=== PATIENT | female | born 1990 | race Caucasian/White ===

== ENCOUNTER 2020-05-27 08:00 | Inpatient (IN) | payer OTHER ==
[2020-05-27] MEDS ORDERED: Sodium Chloride 0.9% 10 ML SDV IV PRN (10:33)
[2020-05-27] MEDS ORDERED: Citric Acid/Sodium Citrate Solution 30 ML Cup PO ONE (10:33)
[2020-05-27] MEDS ORDERED: Sodium Chloride 0.9% 10 ML Syringe FLUSH PRN (10:33)
[2020-05-27] MEDS ORDERED: Sodium Chloride 0.9% 2.5 ML Syringe FLUSH PRN (10:33)
[2020-05-27] MEDS ORDERED: Oxytocin/0.9 % Sodium Chloride 30 UNIT/500 ML BAG IV SCH (10:45)
--- NOTE | 2020-05-27 10:56 | PCM.PREANE ---
Preanesthetic Assessment - Anesthesia/Transfusion/Family Hx Anesthesia History: Prior Anesthesia Reaction (PONV) Type of Anesthesia Reaction: Excessive Nausea/Vomiting Transfusion History: No Prior Transfusion(s) - Review of Systems General: No Symptoms Pulmonary: No Symptoms Cardiovascular: No Symptoms Gastrointestinal: No Symptoms Neurological: No Symptoms Other: Reports: None - Physical Assessment NPO Status Date: 05/27/20 NPO Status Time: 06:00 (apple juice) Height: 1.6 m Weight: 95.254 kg ASA Class: 2 Mental Status: Alert & Oriented x3 Airway Class: Mallampati = 2 Dentition: Reports: Normal Dentition Thyro-Mental Finger Breadths: 3 Mouth Opening Finger Breadths: 3 ROM/Head Extension: Full Lungs: Clear to Auscultation, Normal Respiratory Effort Cardiovascular: Regular Rate, Regular Rhythm - Allergies Allergies/Adverse Reactions: Allergies Allergy/AdvReac Type Severity Reaction Status Date / Time No Known Allergies Allergy Verified 05/21/20 10:24 - Acknowledgements Anesthesia Type Planned: Spinal (The patient understands and accepts the anesthetic risks and benefits of Spinal Anesthesia. Including failed spinal requiring conversion to General Anesthesia. All questions answered. Consent signed. 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: , Other (See Below) Other OB/BYN History: section Musculoskeletal History: Reports: None Neurological History: Reports: None Psychiatric History: Reports: None Endocrine/Metabolic History: Reports: Obesity/BMI 30+ (BMI 37) Hematologic History: Reports: None - Infectious Disease History Infectious Disease History: Reports: Chicken Pox, Other (See Below) (COVID 19 NEGATIVE) - Past Surgical History Head Surgeries/Procedures: Reports: None Female Surgical History: Reports: Section (two) - SUBSTANCE USE Tobacco Use Status *Q: Never Tobacco User Days Per Week of Alcohol Use: 0 Recreational Drug Use History: No - HOME MEDS Home Medications: Home Meds Pnv No.95/Ferrous Fum/Folic AC [ Caplet] 1 cap PO DAILY 05/21/20 [History] - CURRENT (IN HOUSE) MEDS Current Meds: Current Medications Oxytocin/Sodium Chloride (Oxytocin 30 Unit/500 Ml-Ns) 30 unit in 500 mls @ 250 mls/hr IV TITRATE COLLETTE Cefazolin Sodium/Dextrose 2 gm (/ Premix) 50 mls @ 100 mls/hr IV ONETIME ONE Stop: 05/27/20 11:29 Lactated Ringer's (Ringers, Lactated) 1,000 mls @ 500 mls/hr IV BOLUS COLLETTE Ondansetron HCl (Ondansetron 4 Mg/2 Ml Sdv) 4 mg IVPUSH Q6H PRN PRN Reason: Nausea/Vomiting Sodium Chloride (Sodium Chloride 0.9% 10 Ml Syringe) 10 ml FLUSH ASDIRECTED PRN PRN Reason: Keep Vein Open Sodium Chloride (Sodium Chloride 0.9% 2.5 Ml Syringe) 2.5 ml FLUSH ASDIRECTED PRN PRN Reason: Keep Vein Open Sodium Chloride (Sodium Chloride 0.9% 10 Ml Sdv) 10 ml IV ASDIRECTED PRN PRN Reason: IV Use Discontinued Medications Citric Acid/Sodium Citrate (Citric Acid/Sodium Citrate Solution 30 Ml Cup) 30 ml PO ONETIME ONE Stop: 05/27/20 10:34
--- NOTE | 2020-05-27 10:56 | PCM.LDHP ---
L&D History of Present Illness - General Date of Service: 05/27/20 Admit Problem/Dx: Patient Status Order with Admit Dx/Problem 05/27/20 10:33 Patient Status [ADT] Routine Admission Diagnosis/Problem Admission Diagnosis/Problem Source of Information: Patient History Limitations: Reports: No Limitations - History of Present Illness Improves with: Reports: None Worsens with: Reports: None Associated Symptoms: Reports: N - Related Data Allergies/Adverse Reactions: Allergies Allergy/AdvReac Type Severity Reaction Status Date / Time No Known Allergies Allergy Verified 05/21/20 10:24 Home Medications: Home Meds Pnv No.95/Ferrous Fum/Folic AC [ Caplet] 1 cap PO DAILY 05/21/20 [History] Past Medical History HEENT History: Reports: Other (See Below) Other HEENT History: wears glasses/contacts Gastrointestinal History: Reports: Other (See Below) Other Gastrointestinal History: some heartburn during [employer]IDING [employer] History: Reports: , Other (See Below) Other OB/BYN History: section Endocrine/Metabolic History: Reports: Obesity/BMI 30+ - Infectious Disease History Infectious Disease History: Reports: Chicken Pox - Past Surgical History Head Surgeries/Procedures: Reports: None Social & Family History - Family History Musculoskeletal: Reports: Other (See Below) Other Musculoskeletal Family History: Marfan syndrome Endocrine/Metabolic: Reports: Other (See Below) Other Endocrine/Metabolic Family History: Thyroid (pt unsure of which type) Oncologic: Reports: Breast - Tobacco Use Tobacco Use Status *Q: Never Tobacco User - Recreational Drug Use Recreational Drug Use: No Drug Use in Last 12 Months: No H&P Review of Systems - Review of Systems: Review Of Systems: See Below General: Reports: No Symptoms HEENT: Reports: No Symptoms Pulmonary: Reports: No Symptoms Cardiovascular: Reports: No Symptoms Gastrointestinal: Reports: No Symptoms Genitourinary: Reports: No Symptoms Musculoskeletal: Reports: No Symptoms Skin: Reports: No Symptoms Psychiatric: Reports: No Symptoms Neurological: Reports: No Symptoms Hematologic/Lymphatic: Reports: No Symptoms Immunologic: Reports: No Symptoms L&D Exam - Exam Exam: See Below - Vital Signs Weight: 95.254 kg - OB Specific Contraction Intensity: Mild Movement: Active Heart Tones: Present Presentation: Vertex - Exam General: Alert, Oriented HEENT: PERRLA, Conjunctiva Clear, EACs Clear, EOMI, Hearing Intact, Mucosa Moist & [place], Nares Patent, Normal Nasal Septum, Posterior Pharynx Clear, TMs Clear Neck: Supple, Trachea Midline Lungs: Clear to Auscultation, Normal Respiratory Effort Cardiovascular: Regular Rate, Regular Rhythm GI/Abdominal Exam: Normal Bowel Sounds, Soft, Non-Tender, No Organomegaly, No Distention, No Abnormal Bruit, No Mass, Pelvis Stable Rectal Exam: Normal Exam, Normal Rectal Tone Genitourinary: Normal external exam, Normal bimanual exam, Normal speculum exam Back Exam: Normal Inspection, Full Range of Motion Extremities: Normal Inspection, Normal Range of Motion, Non-Tender, No Pedal Edema, Normal Capillary Refill Skin: Warm, Dry, Intact Neurological: Cranial Nerves Intact, Reflexes Equal Bilateral Psychiatric: Alert, Normal Affect, Normal Mood Problem List Initiated/Reviewed/Updated: Yes Orders Last 24hrs: Active Orders 24 hr Category Date Time Status Patient Status [ADT] Routine ADT 05/27/20 10:33 Active Non Stress Test [RC] PER UNIT ROUTINE Care 05/27/20 10:33 Active Notify Provider Vital Signs [RC] PRN Care 05/27/20 14:00 Active Peripheral IV Care [RC] PRN Care 05/27/20 10:33 Active Procedure Site Prep Instruct [RC] ASDIRECTED Care 05/27/20 10:33 Active Up ad Ibis [RC] ASDIRECTED Care 05/27/20 10:33 Active Verify Patient Consent Obtain [RC] ASDIRECTED Care 05/27/20 10:33 Active Vital Signs [RC] PER UNIT ROUTINE Care 05/27/20 10:33 Active CBC W/O DIFF,HEMOGRAM [HEME] Routine Lab 05/27/20 10:33 Ordered RPR (SYPHILIS SERO) W/ RFLX [REF] Routine Lab 05/27/20 10:33 Ordered TYPE AND SCREEN [BBK] Routine Lab 05/27/20 10:33 Ordered Lactated Ringers [Ringers, Lactated] 1,000 ml Med 05/27/20 10:45 Active IV BOLUS Ondansetron [Zofran] Med 05/27/20 13:00 Active 4 mg IVPUSH Q6H PRN Oxytocin/0.9 % Sodium Chloride [Oxytocin 30 Unit/500 ML Med 05/27/20 10:45 Active -NS] 30 unit in 500 ml IV TITRATE Sodium Chloride 0.9% [Normal Saline] Med 05/27/20 10:33 Active 10 ml IV ASDIRECTED PRN Sodium Chloride 0.9% [Saline Flush] Med 05/27/20 10:33 Active 10 ml FLUSH ASDIRECTED PRN Sodium Chloride 0.9% [Saline Flush] Med 05/27/20 10:33 Active 2.5 ml FLUSH ASDIRECTED PRN ceFAZolin [Ancef 2 GM/50 ML] 2 gm Med 05/27/20 11:00 Active Premix Bag 1 bag IV ONETIME Peripheral IV Insertion Adult [OM.PC] Routine Oth 05/27/20 10:33 Ordered Schedule Procedure [COMM] Per Unit Routine Oth 05/27/20 10:33 Ordered Resuscitation Status Routine Resus Stat 05/27/20 10:33 Ordered Medication Orders Oxytocin/Sodium Chloride (Oxytocin 30 Unit/500 Ml-Ns) 30 unit in 500 mls @ 250 mls/hr IV TITRATE COLLETTE Cefazolin Sodium/Dextrose 2 gm (/ Premix) 50 mls @ 100 mls/hr IV ONETIME ONE Stop: 05/27/20 11:29 Lactated Ringer's (Ringers, Lactated) 1,000 mls @ 500 mls/hr IV BOLUS COLLETTE Ondansetron HCl (Ondansetron 4 Mg/2 Ml Sdv) 4 mg IVPUSH Q6H PRN PRN Reason: Nausea/Vomiting Sodium Chloride (Sodium Chloride 0.9% 10 Ml Syringe) 10 ml FLUSH ASDIRECTED PRN PRN Reason: Keep Vein Open Sodium Chloride (Sodium Chloride 0.9% 2.5 Ml Syringe) 2.5 ml FLUSH ASDIRECTED PRN PRN Reason: Keep Vein Open Sodium Chloride (Sodium Chloride 0.9% 10 Ml Sdv) 10 ml IV ASDIRECTED PRN PRN Reason: IV Use Assessment/Plan Comment:: Term intrauterine the patient admitted for elective repeat section
[2020-05-27] MEDS ORDERED: Morphine PF 10 MG/10 ML SDV ONE (10:59)
[2020-05-27] MEDS ORDERED: fentaNYL 100 MCG/2 ML SDV ONE (10:59)
[2020-05-27] MEDS ORDERED: ceFAZolin 2 GM in Premix Bag 1 BAG IV ONE (11:00)
[2020-05-27] MEDS ORDERED: Ondansetron 4 MG/2 ML SDV ONE (11:03)
[2020-05-27] MEDS ORDERED: Oxytocin 10 Units/1 ML SDV ONE (11:03)
[2020-05-27] MEDS ORDERED: Phenylephrine 1% 10 MG/ML SDV ONE ×2 (11:03→12:32)
[2020-05-27] MEDS ORDERED: ceFAZolin 1 GM Vial ONE (11:07)
[2020-05-27] MEDS ORDERED: Sodium Chloride 0.9% 20 ML ONE (11:07)
[2020-05-27] MEDS: Lactated Ringers 1,000 ML IV SCH ×4 (11:35→19:50)
[2020-05-27] MEDS ORDERED: Glycopyrrolate 0.2 MG/ML SDV ONE (12:29)
[2020-05-27] MEDS ORDERED: Nalbuphine 10 MG/1 ML Vial IVPUSH PRN (12:35)
[2020-05-27] MEDS ORDERED: Naloxone 0.4 MG/ML Syringe IVPUSH PRN (12:35)
[2020-05-27] MEDS ORDERED: Acetaminophen/oxyCODONE 325-5 MG Tab PO PRN ×3 (12:35→13:08)
[2020-05-27] MEDS ORDERED: Acetaminophen/HYDROcodone 325-5 MG Tab PO PRN (12:35)
[2020-05-27] MEDS ORDERED: Dexamethasone 4 MG/ML 5 ML MDV ONE (12:36)
[2020-05-27] MEDS ORDERED: Midazolam 1 MG/ML 2 ML SDV ONE (12:37)
[2020-05-27] MEDS ORDERED: Octyl 2-Cyanoacrylate 1 Tube ONE (12:47)
[2020-05-27] MEDS ORDERED: Ondansetron 4 MG/2 ML SDV IVPUSH PRN ×2 (13:00→13:08)
[2020-05-27] MEDS ORDERED: Oxytocin 10 Units/1 ML SDV IM PRN (13:08)
[2020-05-27] MEDS ORDERED: diphenhydrAMINE 50 MG/ML SDV IVPUSH PRN (13:08)
[2020-05-27] MEDS ORDERED: Lanolin 100% Cream 7 GM Tube TOP PRN (13:08)
[2020-05-27] MEDS ORDERED: Misoprostol 200 MCG Tab RECTAL PRN (13:08)
[2020-05-27] MEDS ORDERED: Tranexamic Acid 1,000 MG in Sodium Chloride 0.9% 100 ML IV PRN (13:08)
[2020-05-27] MEDS ORDERED: Bisacodyl 10 MG Supp RECTAL PRN (13:08)
[2020-05-27] MEDS ORDERED: Methylergonovine 0.2 MG/1 ML Amp IM PRN (13:08)
--- NOTE | 2020-05-27 13:26 | PCM.OPNOTE ---
- General Post-Op/Procedure Note Date of Surgery/Procedure: 05/27/20 Operative Procedure(s): Repeat C/section. Pre Op Diagnosis: IUP 39 wks previous C/section. Post-Op Diagnosis: Same Anesthesia Technique: Spinal Primary Surgeon: Omid Dudley Collar Padder Blindstitch: Herminia Guzman EBL in mLs: 700 Complications: None Condition: Stable
[2020-05-27] MEDS: Ketorolac 30 MG/ML SDV IVPUSH SCH ×2 (13:31→19:47)
--- NOTE | 2020-05-27 13:51 | PCM.POSTAN ---
POST ANESTHESIA ASSESSMENT - MENTAL STATUS Mental Status: Alert (Patient sitting straight up in bed with SBP 90's and asymptomatic), Oriented - RESPIRATORY Respiratory Status: Respiratory Rate WNL, Airway Patent, O2 Saturation Stable - CARDIOVASCULAR CV Status: Pulse Rate WNL, Blood Pressure Stable - GASTROINTESTINAL GI Status: No Symptoms - POST OP HYDRATION Hydration Status: Adequate & Stable
--- NOTE | 2020-05-27 14:35 | OR ---
SURGEON: Omid Dudley MD DATE OF PROCEDURE: 05/27/2020 PREOPERATIVE DIAGNOSIS: Intrauterine at 39 weeks, previous section, admitted for elective repeat section. POSTOPERATIVE DIAGNOSIS: Intrauterine at 39 weeks, previous section, admitted for elective repeat section. OPERATION PERFORMED: Repeat low transverse section. PRIMARY SURGEON: Omid Dudley MD MASTER HEARTH TECHNICIAN: Herminia Guzman CNM ANESTHESIA: Spinal. ESTIMATED BLOOD LOSS: 700 mL. COMPLICATIONS: None. FINDINGS: Female fetus. score reported to be 8 and 9. The weight is not available. Normal uterus, tubes, and ovaries. INDICATIONS FOR SURGERY: This patient has had a previous section. She is admitted for elective repeat section. She is 39 plus weeks. PROCEDURE IN DETAIL: The patient was brought to the OR, properly identified, and after adequate level of spinal anesthesia with the patient prepped and draped in sterile fashion as usual with a Barrios catheter in the bladder, low transverse Pfannenstiel skin incision was done. Freddy fascia and rectus fascia were opened in direction of the incision. The two recti muscles were and peritoneal cavity was entered. Bladder flap was raised in the usual manner pushing the bladder away from the lower uterine segment. Low transverse uterine incision was done and extended manually with the hand. Fetus was delivered, was in a vertex position. Fetus was female, cried immediately. score later on reported to be 8 and 9. The placenta delivered spontaneous, complete, and intact and repair of the lower uterine segment was done with 2-0 Vicryl continuous interlocking in two layers. Reperitonealization done with 3-0 Vicryl continuous and then the peritoneal cavity evacuated completely from all blood and blood clot and closed with 3-0 Vicryl continuous. The rectus fascia was closed with #1 PDS double strand continuous. The Freddy fascia with 3-0 Vicryl continuous. The skin closed with 3-0 Stratafix in a subcuticular fashion and Dermabond. Instrument and sponge count was correct. The patient tolerated the procedure well, went to recovery room in stable general condition. TIMOTHY / BUSTER /[id number]
[2020-05-27] MEDS ORDERED: Scopolamine 1.5 MG Transdermal Patch TRDERM PRN (17:39)
[2020-05-27] MEDS ORDERED: Metoclopramide 10 MG/2 ML SDV IVPUSH ONE (17:39)
[2020-05-27] MEDS: Docusate Sodium 100 MG Cap PO SCH (22:00)
[2020-05-28] MEDS: Ketorolac 30 MG/ML SDV IVPUSH SCH ×3 (02:25→13:54)
[2020-05-28] MEDS: Lactated Ringers 1,000 ML IV SCH (04:00)
--- NOTE | 2020-05-28 07:55 | PCM48HPAN ---
Post Anesthesia Note - EVALUATION WITHIN 48HRS OF ANESTHETIC Vital Signs in Normal Range: Yes Patient Participated in Evaluation: Yes Respiratory Function Stable: Yes Airway Patent: Yes Cardiovascular Function Stable: Yes Hydration Status Stable: Yes Pain Control Satisfactory: Yes Nausea and Vomiting Control Satisfactory: Yes Mental Status Recovered: Yes Vital Signs: Last Vital Signs Temp 37.0 C 05/28/20 00:00 Pulse 68 05/28/20 07:25 Resp 17 05/28/20 07:25 BP 95/53 L 05/28/20 05:00 Pulse Ox 94 L 05/28/20 07:25 - COMMENTS/OBSERVATIONS Free Text/Narrative:: pt states full sensation in legs bilaterally
[2020-05-28] MEDS: Docusate Sodium 100 MG Cap PO SCH ×2 (08:01→21:14)
--- NOTE | 2020-05-28 08:48 | PCM.SURGPN ---
- General Info Date of Service: 05/28/20 POD#: 1 Functional Status: Reports: Pain Controlled - Review of Systems General: Reports: No Symptoms HEENT: Reports: No Symptoms Pulmonary: Reports: No Symptoms Cardiovascular: Reports: No Symptoms Gastrointestinal: Reports: No Symptoms Genitourinary: Reports: No Symptoms Musculoskeletal: Reports: No Symptoms Skin: Reports: No Symptoms Neurological: Reports: No Symptoms Psychiatric: Reports: No Symptoms - Patient Data Vitals - Most Recent: Last Vital Signs Temp 36.6 C 05/28/20 07:58 Pulse 70 05/28/20 07:58 Resp 16 05/28/20 07:58 BP 90/47 L 05/28/20 07:58 Pulse Ox 95 05/28/20 07:58 Weight - Most Recent: 95.254 kg I&O - Last 24 Hours: Intake & Output 05/27/20 05/28/20 05/28/20 22:59 06:59 14:59 Output Total 850 Balance -850 Lab Results Last 24 Hrs: Laboratory Results - last 24 hr 05/27/20 05/27/20 05/28/20 Range/Units 11:35 11:35 05:50 WBC 12.45 H (4.0-11.0) K/uL RBC 3.58 L (4.30-5.90) M/uL Hgb 11.3 L 9.5 L (12.0-16.0) g/dL Hct 32.5 L 26.9 L (36.0-46.0) % MCV 90.8 (80.0-98.0) fL MCH 31.6 (27.0-32.0) pg MCHC 34.8 (31.0-37.0) g/dL RDW Std Deviation 61.9 (28.0-62.0) fl RDW Coeff of Alice 19 H (11.0-15.0) % Plt Count 208 (150-400) K/uL MPV 9.90 (7.40-12.00) fL Nucleated RBC % 0.0 /100WBC Nucleated RBCs # 0 K/uL Blood Type A POSITIVE Antibody Screen NEGATIVE Med Orders - Current: Current Medications Hydrocodone Bitart/Acetaminophen (Acetaminophen/Hydrocodone 325-5 Mg Tab) 2 tab PO Q6H PRN PRN Reason: Pain (moderate 4-6) Bisacodyl (Bisacodyl 10 Mg Supp) 10 mg RECTAL ONETIME PRN PRN Reason: Constipation Diphenhydramine HCl (Diphenhydramine 50 Mg/Ml Sdv) 25 mg IVPUSH Q6H PRN PRN Reason: Itching or Nausea Docusate Sodium (Docusate Sodium 100 Mg Cap) 100 mg PO BID [facility] Last Admin: 05/28/20 08:01 Dose: 100 mg Documented by: Emollient Ointment (Lanolin 100% Cream 7 Gm Tube) 0 gm TOP ASDIRECTED PRN PRN Reason: Sore Nipples Oxytocin/Sodium Chloride (Oxytocin 30 Unit/500 Ml-Ns) 30 unit in 500 mls @ 250 mls/hr IV TITRATE [facility] Lactated Ringer's (Ringers, Lactated) 1,000 mls @ 500 mls/hr IV BOLUS [facility] Last Admin: 05/27/20 12:03 Dose: 999 mls/hr Documented by: Lactated Ringer's (Ringers, Lactated) 1,000 mls @ 125 mls/hr IV ASDIRECTED [facility] Last Admin: 05/28/20 04:00 Dose: 125 mls/hr Documented by: Tranexamic Acid 1,000 mg/ (Sodium Chloride) 110 mls @ 660 mls/hr IV ONETIME PRN PRN Reason: Bleeding Ibuprofen (Ibuprofen 800 Mg Tab) 800 mg PO Q8H PRN PRN Reason: mild pain or fever Ketorolac Tromethamine (Ketorolac 30 Mg/Ml Sdv) 30 mg IVPUSH Q6H [facility] Stop: 05/28/20 13:16 Last Admin: 05/28/20 08:01 Dose: 30 mg Documented by: Methylergonovine Maleate (Methylergonovine 0.2 Mg/1 Ml Amp) 0.2 mg IM ONETIME PRN PRN Reason: Excessive Vaginal Bleeding Misoprostol (Misoprostol 200 Mcg Tab) 1,000 mcg RECTAL ONETIME PRN PRN Reason: excessive bleeding Nalbuphine HCl (Nalbuphine 10 Mg/1 Ml Vial) 2.5 mg IVPUSH Q3H PRN PRN Reason: Pruritis Stop: 05/28/20 12:35 Naloxone HCl (Naloxone 0.4 Mg/Ml Syringe) 0.1 mg IVPUSH ONETIME PRN PRN Reason: Respiratory Depression Stop: 05/28/20 12:35 Ondansetron HCl (Ondansetron 4 Mg/2 Ml Sdv) 4 mg IVPUSH Q6H PRN PRN Reason: Nausea/Vomiting Ondansetron HCl (Ondansetron 4 Mg/2 Ml Sdv) 4 mg IVPUSH Q4H PRN PRN Reason: Nausea/Vomiting Oxycodone/Acetaminophen (Acetaminophen/Oxycodone 325-5 Mg Tab) 1 tab PO ONETIME PRN PRN Reason: Pain (mild 1-3) Oxycodone/Acetaminophen (Acetaminophen/Oxycodone 325-5 Mg Tab) 1 tab PO Q4H PRN PRN Reason: Pain (moderate 4-6) Oxycodone/Acetaminophen (Acetaminophen/Oxycodone 325-5 Mg Tab) 2 tab PO Q4H PRN PRN Reason: Pain (moderate 4-6) Oxytocin (Oxytocin 10 Units/1 Ml Sdv) 10 unit IM ASDIRECTED PRN PRN Reason: Excessive Vaginal Bleeding Scopolamine (Scopolamine 1.5 Mg Transdermal Patch) 1.5 mg TRDERM Q72H PRN PRN Reason: Nausea/Vomiting Last Admin: 05/27/20 17:52 Dose: 1.5 mg Documented by: Sodium Chloride (Sodium Chloride 0.9% 10 Ml Syringe) 10 ml FLUSH ASDIRECTED PRN PRN Reason: Keep Vein Open Last Admin: 05/27/20 13:35 Dose: 10 ml Documented by: Sodium Chloride (Sodium Chloride 0.9% 2.5 Ml Syringe) 2.5 ml FLUSH ASDIRECTED PRN PRN Reason: Keep Vein Open Sodium Chloride (Sodium Chloride 0.9% 10 Ml Sdv) 10 ml IV ASDIRECTED PRN PRN Reason: IV Use Discontinued Medications Cefazolin Sodium (Cefazolin 1 Gm Vial) Confirm Administered Dose 2 gm .ROUTE .[facility]-MED ONE Stop: 05/27/20 11:08 Citric Acid/Sodium Citrate (Citric Acid/Sodium Citrate Solution 30 Ml Cup) 30 ml PO ONETIME ONE Stop: 05/27/20 10:34 Last Admin: 05/27/20 21:58 Dose: Not Given Documented by: Dexamethasone (Dexamethasone 4 Mg/Ml 5 Ml Mdv) Confirm Administered Dose 20 mg .ROUTE .[facility] ONE Stop: 05/27/20 12:37 Fentanyl (Fentanyl 100 Mcg/2 Ml Sdv) Confirm Administered Dose 100 mcg .ROUTE .[facility] ONE Stop: 05/27/20 11:00 Glycopyrrolate (Glycopyrrolate 0.2 Mg/Ml Sdv) Confirm Administered Dose 0.2 mg .ROUTE .[facility] ONE Stop: 05/27/20 12:30 Cefazolin Sodium/Dextrose 2 gm (/ Premix) 50 mls @ 100 mls/hr IV ONETIME ONE Stop: 05/27/20 11:29 Last Admin: 05/27/20 21:58 Dose: Not Given Documented by: Sodium Chloride (Normal Saline) Confirm Administered Dose 20 mls @ as directed .ROUTE .[facility] ONE Stop: 05/27/20 11:08 Metoclopramide HCl (Metoclopramide 10 Mg/2 Ml Sdv) 10 mg IVPUSH ONETIME ONE Stop: 05/27/20 17:40 Last Admin: 05/27/20 17:50 Dose: 10 mg Documented by: Midazolam HCl (Midazolam 1 Mg/Ml 2 Ml Sdv) Confirm Administered Dose 2 mg .ROUTE .[facility] ONE Stop: 05/27/20 12:38 Morphine Sulfate (Morphine Pf 10 Mg/10 Ml Sdv) Confirm Administered Dose 10 mg .ROUTE .[facility] ONE Stop: 05/27/20 11:00 Octyl Cyanoacrylate (Octyl 2-Cyanoacrylate 1 Tube) Confirm Administered Dose 1 applic .ROUTE .[facility] ONE Stop: 05/27/20 12:48 Last Admin: 05/27/20 21:58 Dose: Not Given Documented by: Ondansetron HCl (Ondansetron 4 Mg/2 Ml Sdv) Confirm Administered Dose 4 mg .ROUTE .[facility] ONE Stop: 05/27/20 11:04 Oxytocin (Oxytocin 10 Units/1 Ml Sdv) Confirm Administered Dose 20 unit .ROUTE .[facility] ONE Stop: 05/27/20 11:04 Phenylephrine HCl (Phenylephrine 1% 10 Mg/Ml Sdv) Confirm Administered Dose 10 mg .ROUTE .[facility] ONE Stop: 05/27/20 11:04 Phenylephrine HCl (Phenylephrine 1% 10 Mg/Ml Sdv) Confirm Administered Dose 10 mg .ROUTE .[facility] ONE Stop: 05/27/20 12:33 - Exam Wound/Incisions: Healing Well General: Alert, Oriented HEENT: Pupils Equal Neck: Supple Lungs: Clear to Auscultation, Normal Respiratory Effort Cardiovascular: Regular Rate, Regular Rhythm GI/Abdominal Exam: Normal Bowel Sounds, Soft, Non-Tender, No Organomegaly, No Distention, No Abnormal Bruit, No Mass, Pelvis Stable Extremities: Normal Inspection, Normal Range of Motion, Non-Tender, No Pedal Edema, Normal Capillary Refill Skin: Warm, Dry, Intact Neurological: No New Focal Deficit Psy/Mental Status: Alert, Normal Affect, Normal Mood Sepsis Event Note - Evaluation Sepsis Screening Result: No Definite Risk - Focused Exam Vital Signs: Vital Signs Temp Pulse Resp BP Pulse Ox 05/28/20 07:58 36.6 C 70 16 90/47 L 95 05/28/20 07:25 68 17 94 L 05/28/20 06:00 74 17 96 05/28/20 05:00 65 16 95/53 L 100 05/28/20 04:00 63 15 96 05/28/20 03:00 62 14 97 05/28/20 02:00 66 14 93/54 L 98 05/28/20 01:00 64 15 97 05/28/20 00:00 37.0 C 65 16 88/46 L 96 05/27/20 23:00 76 14 97 05/27/20 22:00 83 14 98 05/27/20 21:15 68 14 97 - Problem List Review Problem List Initiated/Reviewed/Updated: Yes - My Orders Last 24 Hours: Active Orders 24 hr Category Date Time Status Patient Status [ADT] Routine ADT 05/27/20 13:08 Active Ambulate [RC] PER UNIT ROUTINE Care 05/27/20 13:08 Active Antiembolic Devices [RC] PER UNIT ROUTINE Care 05/27/20 13:09 Active Bradycardia-Neuroaxis [employer] [RC] ROUTINE Care 05/27/20 12:35 Active Communication Order [RC] PER UNIT ROUTINE Care 05/27/20 13:08 Active Communication Order [RC] Per Unit Routine Care 05/27/20 13:08 Active Hypertension-Neuroaxis [employer] [RC] ROUTINE Care 05/27/20 12:35 Active Hypotension-Neuroaxis [employer] [RC] ROUTINE Care 05/27/20 12:35 Active May Shower [RC] ASDIRECTED Care 05/27/20 13:08 Active Notify Provider Vital Signs [RC] PRN Care 05/27/20 14:00 Active Oxygen Therapy [RC] PER UNIT ROUTINE Care 05/27/20 12:35 Active Peripheral IV Care [RC] PRN Care 05/27/20 10:33 Active RT Incentive Spirometry [RC] Q2HWA Care 05/27/20 13:08 Active Up ad Ibis [RC] ASDIRECTED Care 05/27/20 10:33 Active Vital Signs [RC] Q1H Care 05/27/20 12:35 Active Regular Diet [DIET] Diet 05/27/20 Dinner Active RPR (SYPHILIS SERO) W/ RFLX [REF] Routine Lab 05/27/20 11:35 Received Acetaminophen/HYDROcodone [Mulberry 325-5 MG] Med 05/27/20 12:35 Active 2 tab PO Q6H PRN Acetaminophen/oxyCODONE [Percocet 325-5 MG] Med 05/27/20 12:35 Active 1 tab PO ONETIME PRN Acetaminophen/oxyCODONE [Percocet 325-5 MG] Med 05/27/20 13:08 Active 1 tab PO Q4H PRN Acetaminophen/oxyCODONE [Percocet 325-5 MG] Med 05/27/20 13:08 Active 2 tab PO Q4H PRN Docusate Sodium [Colace] Med 05/27/20 21:00 Active 100 mg PO BID Ibuprofen [Motrin] Med 05/28/20 19:15 Active 800 mg PO Q8H PRN Ketorolac [Toradol] Med 05/27/20 13:15 Active 30 mg IVPUSH Q6H Lactated Ringers [Ringers, Lactated] 1,000 ml Med 05/27/20 13:15 Active IV ASDIRECTED Lactated Ringers [Ringers, Lactated] 1,000 ml Med 05/27/20 10:45 Active IV BOLUS Lanolin [Lansinoh HPA] Med 05/27/20 13:08 Active See Dose Instructions TOP ASDIRECTED PRN Methylergonovine [Methergine] Med 05/27/20 13:08 Active 0.2 mg IM ONETIME PRN Nalbuphine [Nubain] Med 05/27/20 12:35 Active 2.5 mg IVPUSH Q3H PRN Naloxone [Narcan] Med 05/27/20 12:35 Active 0.1 mg IVPUSH ONETIME PRN Ondansetron [Zofran] Med 05/27/20 13:08 Active 4 mg IVPUSH Q4H PRN Ondansetron [Zofran] Med 05/27/20 13:00 Active 4 mg IVPUSH Q6H PRN Oxytocin [Pitocin] Med 05/27/20 13:08 Active 10 unit IM ASDIRECTED PRN Oxytocin/0.9 % Sodium Chloride [Oxytocin 30 Unit/500 ML Med 05/27/20 10:45 Active -NS] 30 unit in 500 ml IV TITRATE Scopolamine [Transderm-Scop] Med 05/27/20 17:39 Active 1.5 mg TRDERM Q72H PRN Sodium Chloride 0.9% [Normal Saline] Med 05/27/20 10:33 Active 10 ml IV ASDIRECTED PRN Sodium Chloride 0.9% [Saline Flush] Med 05/27/20 10:33 Active 10 ml FLUSH ASDIRECTED PRN Sodium Chloride 0.9% [Saline Flush] Med 05/27/20 10:33 Active 2.5 ml FLUSH ASDIRECTED PRN Tranexamic Acid [Cyklokapron] 1,000 mg Med 05/27/20 13:08 Active Sodium Chloride 0.9% [Normal Saline] 100 ml IV ONETIME bisacodyL [Dulcolax] Med 05/27/20 13:08 Active 10 mg RECTAL ONETIME PRN diphenhydrAMINE [Benadryl] Med 05/27/20 13:08 Active 25 mg IVPUSH Q6H PRN miSOPROStoL [Cytotec] Med 05/27/20 13:08 Active 1,000 mcg RECTAL ONETIME PRN AN Neuroaxis [employer] Precaution Reflex [OM.PC] PER Ot 05/27/20 12:45 Ordered UNIT ROUTINE Assess Lochia [WOMSER] Per Unit Routine Ot 05/27/20 13:08 Ordered Assess Uterine Involution [WOMSER] Per Unit Routine Ot 05/27/20 13:08 Ordered Breast Pump [WOMSER] Per Unit Routine Ot 05/27/20 13:08 Ordered Peripheral IV Discontinue [OM.PC] Routine Ot 05/27/20 13:08 Ordered Peripheral IV Insertion Adult [OM.PC] Routine Ot 05/27/20 10:33 Ordered Schedule Procedure [COMM] Per Unit Routine Oth 05/27/20 10:33 Ordered Sequential Compression Device [OM.PC] Per Unit Routine Oth 05/27/20 13:08 Ordered Resuscitation Status Routine Resus Stat 05/27/20 10:33 Ordered Medication Orders Hydrocodone Bitart/Acetaminophen (Acetaminophen/Hydrocodone 325-5 Mg Tab) 2 tab PO Q6H PRN PRN Reason: Pain (moderate 4-6) Bisacodyl (Bisacodyl 10 Mg Supp) 10 mg RECTAL ONETIME PRN PRN Reason: Constipation Diphenhydramine HCl (Diphenhydramine 50 Mg/Ml Sdv) 25 mg IVPUSH Q6H PRN PRN Reason: Itching or Nausea Docusate Sodium (Docusate Sodium 100 Mg Cap) 100 mg PO BID [facility] Last Admin: 05/28/20 08:01 Dose: 100 mg Documented by: Admin: 05/27/20 22:00 Dose: Not Given Documented by: SANDRA Emollient Ointment (Lanolin 100% Cream 7 Gm Tube) 0 gm TOP ASDIRECTED PRN PRN Reason: Sore Nipples Oxytocin/Sodium Chloride (Oxytocin 30 Unit/500 Ml-Ns) 30 unit in 500 mls @ 250 mls/hr IV TITRATE [facility] Lactated Ringer's (Ringers, Lactated) 1,000 mls @ 500 mls/hr IV BOLUS [facility] Last Admin: 05/27/20 12:03 Dose: 999 mls/hr Documented by: Infusion: 05/27/20 12:03 Dose: 999 mls/hr Documented by: Admin: 05/27/20 11:35 Dose: 999 mls/hr Documented by: STACI Lactated Ringer's (Ringers, Lactated) 1,000 mls @ 125 mls/hr IV ASDIRECTED [facility] Last Admin: 05/28/20 04:00 Dose: 125 mls/hr Documented by: Infusion: 05/28/20 03:50 Dose: 125 mls/hr Documented by: Admin: 05/27/20 19:50 Dose: 125 mls/hr Documented by: SANDRA Cosigned by: NICO Infusion: 05/27/20 19:50 Dose: 125 mls/hr Documented by: SANDRA Cosigned by: NICO Admin: 05/27/20 16:05 Dose: 125 mls/hr Documented by: STACI Tranexamic Acid 1,000 mg/ (Sodium Chloride) 110 mls @ 660 mls/hr IV ONETIME PRN PRN Reason: Bleeding Ibuprofen (Ibuprofen 800 Mg Tab) 800 mg PO Q8H PRN PRN Reason: mild pain or fever Ketorolac Tromethamine (Ketorolac 30 Mg/Ml Sdv) 30 mg IVPUSH Q6H [facility] Stop: 05/28/20 13:16 Last Admin: 05/28/20 08:01 Dose: 30 mg Documented by: Admin: 05/28/20 02:25 Dose: 30 mg Documented by: SANDRA Cosigned by: NICO Admin: 05/27/20 19:47 Dose: 30 mg Documented by: SANDRA Cosigned by: NICO Admin: 05/27/20 13:31 Dose: 30 mg Documented by: STACI Methylergonovine Maleate (Methylergonovine 0.2 Mg/1 Ml Amp) 0.2 mg IM ONETIME PRN PRN Reason: Excessive Vaginal Bleeding Misoprostol (Misoprostol 200 Mcg Tab) 1,000 mcg RECTAL ONETIME PRN PRN Reason: excessive bleeding Nalbuphine HCl (Nalbuphine 10 Mg/1 Ml Vial) 2.5 mg IVPUSH Q3H PRN PRN Reason: Pruritis Stop: 05/28/20 12:35 Naloxone HCl (Naloxone 0.4 Mg/Ml Syringe) 0.1 mg IVPUSH ONETIME PRN PRN Reason: Respiratory Depression Stop: 05/28/20 12:35 Ondansetron HCl (Ondansetron 4 Mg/2 Ml Sdv) 4 mg IVPUSH Q6H PRN PRN Reason: Nausea/Vomiting Ondansetron HCl (Ondansetron 4 Mg/2 Ml Sdv) 4 mg IVPUSH Q4H PRN PRN Reason: Nausea/Vomiting Oxycodone/Acetaminophen (Acetaminophen/Oxycodone 325-5 Mg Tab) 1 tab PO ONETIME PRN PRN Reason: Pain (mild 1-3) Oxycodone/Acetaminophen (Acetaminophen/Oxycodone 325-5 Mg Tab) 1 tab PO Q4H PRN PRN Reason: Pain (moderate 4-6) Oxycodone/Acetaminophen (Acetaminophen/Oxycodone 325-5 Mg Tab) 2 tab PO Q4H PRN PRN Reason: Pain (moderate 4-6) Oxytocin (Oxytocin 10 Units/1 Ml Sdv) 10 unit IM ASDIRECTED PRN PRN Reason: Excessive Vaginal Bleeding Scopolamine (Scopolamine 1.5 Mg Transdermal Patch) 1.5 mg TRDERM Q72H PRN PRN Reason: Nausea/Vomiting Last Admin: 05/27/20 17:52 Dose: 1.5 mg Documented by: RAMILATIF Sodium Chloride (Sodium Chloride 0.9% 10 Ml Syringe) 10 ml FLUSH ASDIRECTED PRN PRN Reason: Keep Vein Open Last Admin: 05/27/20 13:35 Dose: 10 ml Documented by: HINDTIF Sodium Chloride (Sodium Chloride 0.9% 2.5 Ml Syringe) 2.5 ml FLUSH ASDIRECTED PRN PRN Reason: Keep Vein Open Sodium Chloride (Sodium Chloride 0.9% 10 Ml Sdv) 10 ml IV ASDIRECTED PRN PRN Reason: IV Use - Assessment Assessment (Free Text/Narrative):: Status post section postoperative day #1 patient is doing well on regular diet she is ambulatory voiding without any problem and incision clean and dry - Plan Plan (Free Text/Narrative):: We are planning discharge in a.m.
[2020-05-28] MEDS ORDERED: Ibuprofen 800 MG Tab PO PRN (19:15)
--- NOTE | 2020-05-29 11:54 | PCM.DCSUM1 ---
Discharge Summary - Hospital Course Free Text/Narrative:: Alaina is a 29 yo PPD2 S/P unplanned repeat LTCS of term NBF. A pos, RI, GBS pos with adequate china-surgical antibiotic prophylaxis. Patient has no complaints or concerns at this time. Patient is bottle and well, resting comfortably in bed with in bassinet. Patient reports she is eating, voiding, ambulating independently and without difficulty. Patient denies any problems or concerns at this time except mild-moderate intermittent uterine cramping relieved with Tylenol and Ibuprofen. Patient reports small vaginal bleeding with no clots. Patient verbalizes her readiness to be discharged home today. Low transverse incision KASHMIR dressing clean, dry, intact. Diagnosis: Stroke: No - Discharge Data Discharge Date: 05/29/20 Discharge Disposition: Home, Self-Care 01 Condition: Stable - Referral to Home Health Primary Care Physician: PCP None - Patient Summary/Data Operative Procedure(s) Performed: Repeat C/section. - Patient Instructions Diet: Usual Diet as Tolerated, Regular Diet as Tolerated, Drink 8-10+ Glasses/Day Activity: As Tolerated, No Lifting Over 20 Pounds, No Strenuous Activities, Rest and Relax Today Driving: May Drive Today Showering/Bathing: May Shower Wound/Incision Care: Keep Operative Site/Wound Site Clean and Dry, Do NOT Change Dressing Notify Provider of: Fever, Increased Pain, Swelling and Redness, Drainage, Nausea and/or Vomiting - Discharge Plan *PRESCRIPTION DRUG MONITORING PROGRAM REVIEWED*: No *COPY OF PRESCRIPTION DRUG MONITORING REPORT IN PATIENT ALFREDITO: No Prescriptions/Med Rec: Docusate Sodium [Colace] 100 mg PO BID #60 cap Ibuprofen [Motrin] 800 mg PO Q8H PRN #90 tablet PRN Reason: mild pain or fever Acetaminophen/oxyCODONE [Percocet 325-5 MG] 1 - 2 tab PO Q4H PRN #30 tablet PRN Reason: Pain (Moderate 4-6) Home Medications: Home Meds Pnv No.95/Ferrous Fum/Folic AC [ Caplet] 1 cap PO DAILY 05/21/20 [History] Acetaminophen/oxyCODONE [Percocet 325-5 MG] 1 - 2 tab PO Q4H PRN #30 tablet 05/29/20 [Rx] Docusate Sodium [Colace] 100 mg PO BID #60 cap 05/29/20 [Rx] Ibuprofen [Motrin] 800 mg PO Q8H PRN #90 tablet 05/29/20 [Rx] Oxygen Therapy Mode: Room Air Patient Handouts: [facility] [place] Laws, Delivery, Care After, Care After Delivery Referrals: Barrie Case [Ordering Only Provider] - 07/09/20 9:30 am (6 week follow- up appointment with Dr. Dudley. Please arrive 15 minutes early. Bring ID and insurance card. Masks are required.) Omid Dudley MD [Physician] - 06/04/20 2:45 pm (Please arrive to appointment 15 minutes early. Bring ID and insurance card. Masks are required.) - Discharge Summary/Plan Comment DC Time >30 min.: No Discharge Summary/Plan Comment: RTO in 1 week for KASHMIR dressing removal. RTO in 6 weeks for visit. -OR- RTO as needed in problems or concerns arise. - General Info Date of Service: 05/29/20 Admission Dx/Problem (Free Text: Patient Status Order with Admit Dx/Problem 05/27/20 10:33 Patient Status [ADT] Routine Admission Diagnosis/Problem Admission Diagnosis/Problem Functional Status: Reports: Pain Controlled, Tolerating Diet, Ambulating, Urinating - Review of Systems General: Reports: No Symptoms HEENT: Reports: No Symptoms Pulmonary: Reports: No Symptoms Cardiovascular: Reports: No Symptoms Gastrointestinal: Reports: No Symptoms Genitourinary: Reports: No Symptoms Musculoskeletal: Reports: No Symptoms Skin: Reports: No Symptoms Neurological: Reports: No Symptoms Psychiatric: Reports: No Symptoms - Patient Data Vitals - Most Recent: Last Vital Signs Temp 97.8 F 05/29/20 08:00 Pulse 68 05/29/20 08:00 Resp 17 05/29/20 08:00 BP 116/68 05/29/20 08:00 Pulse Ox 98 05/29/20 08:00 Weight - Most Recent: 210 lb Med Orders - Current: Current Medications Hydrocodone Bitart/Acetaminophen (Acetaminophen/Hydrocodone 325-5 Mg Tab) 2 tab PO Q6H PRN PRN Reason: Pain (moderate 4-6) Bisacodyl (Bisacodyl 10 Mg Supp) 10 mg RECTAL ONETIME PRN PRN Reason: Constipation Diphenhydramine HCl (Diphenhydramine 50 Mg/Ml Sdv) 25 mg IVPUSH Q6H PRN PRN Reason: Itching or Nausea Docusate Sodium (Docusate Sodium 100 Mg Cap) 100 mg PO BID [facility] Last Admin: 05/28/20 21:14 Dose: 100 mg Documented by: Emollient Ointment (Lanolin 100% Cream 7 Gm Tube) 0 gm TOP ASDIRECTED PRN PRN Reason: Sore Nipples Oxytocin/Sodium Chloride (Oxytocin 30 Unit/500 Ml-Ns) 30 unit in 500 mls @ 250 mls/hr IV TITRATE [facility] Lactated Ringer's (Ringers, Lactated) 1,000 mls @ 500 mls/hr IV BOLUS [facility] Last Admin: 05/27/20 12:03 Dose: 999 mls/hr Documented by: Lactated Ringer's (Ringers, Lactated) 1,000 mls @ 125 mls/hr IV ASDIRECTED [facility] Last Admin: 05/28/20 04:00 Dose: 125 mls/hr Documented by: Tranexamic Acid 1,000 mg/ (Sodium Chloride) 110 mls @ 660 mls/hr IV ONETIME PRN PRN Reason: Bleeding Ibuprofen (Ibuprofen 800 Mg Tab) 800 mg PO Q8H PRN PRN Reason: mild pain or fever Last Admin: 05/28/20 23:10 Dose: 800 mg Documented by: Methylergonovine Maleate (Methylergonovine 0.2 Mg/1 Ml Amp) 0.2 mg IM ONETIME PRN PRN Reason: Excessive Vaginal Bleeding Misoprostol (Misoprostol 200 Mcg Tab) 1,000 mcg RECTAL ONETIME PRN PRN Reason: excessive bleeding Ondansetron HCl (Ondansetron 4 Mg/2 Ml Sdv) 4 mg IVPUSH Q6H PRN PRN Reason: Nausea/Vomiting Ondansetron HCl (Ondansetron 4 Mg/2 Ml Sdv) 4 mg IVPUSH Q4H PRN PRN Reason: Nausea/Vomiting Oxycodone/Acetaminophen (Acetaminophen/Oxycodone 325-5 Mg Tab) 1 tab PO ONETIME PRN PRN Reason: Pain (mild 1-3) Oxycodone/Acetaminophen (Acetaminophen/Oxycodone 325-5 Mg Tab) 1 tab PO Q4H PRN PRN Reason: Pain (moderate 4-6) Last Admin: 05/28/20 17:22 Dose: 1 tab Documented by: Oxycodone/Acetaminophen (Acetaminophen/Oxycodone 325-5 Mg Tab) 2 tab PO Q4H PRN PRN Reason: Pain (moderate 4-6) Oxytocin (Oxytocin 10 Units/1 Ml Sdv) 10 unit IM ASDIRECTED PRN PRN Reason: Excessive Vaginal Bleeding Scopolamine (Scopolamine 1.5 Mg Transdermal Patch) 1.5 mg TRDERM Q72H PRN PRN Reason: Nausea/Vomiting Last Admin: 05/27/20 17:52 Dose: 1.5 mg Documented by: Sodium Chloride (Sodium Chloride 0.9% 10 Ml Syringe) 10 ml FLUSH ASDIRECTED PRN PRN Reason: Keep Vein Open Last Admin: 05/27/20 13:35 Dose: 10 ml Documented by: Sodium Chloride (Sodium Chloride 0.9% 2.5 Ml Syringe) 2.5 ml FLUSH ASDIRECTED PRN PRN Reason: Keep Vein Open Sodium Chloride (Sodium Chloride 0.9% 10 Ml Sdv) 10 ml IV ASDIRECTED PRN PRN Reason: IV Use Discontinued Medications Cefazolin Sodium (Cefazolin 1 Gm Vial) Confirm Administered Dose 2 gm .ROUTE .STK-MED ONE Stop: 05/27/20 11:08 Citric Acid/Sodium Citrate (Citric Acid/Sodium Citrate Solution 30 Ml Cup) 30 ml PO ONETIME ONE Stop: 05/27/20 10:34 Last Admin: 05/27/20 21:58 Dose: Not Given Documented by: Dexamethasone (Dexamethasone 4 Mg/Ml 5 Ml Mdv) Confirm Administered Dose 20 mg .ROUTE .STK-MED ONE Stop: 05/27/20 12:37 Fentanyl (Fentanyl 100 Mcg/2 Ml Sdv) Confirm Administered Dose 100 mcg .ROUTE .STK-MED ONE Stop: 05/27/20 11:00 Glycopyrrolate (Glycopyrrolate 0.2 Mg/Ml Sdv) Confirm Administered Dose 0.2 mg .ROUTE .STK-MED ONE Stop: 05/27/20 12:30 Cefazolin Sodium/Dextrose 2 gm (/ Premix) 50 mls @ 100 mls/hr IV ONETIME ONE Stop: 05/27/20 11:29 Last Admin: 05/27/20 21:58 Dose: Not Given Documented by: Sodium Chloride (Normal Saline) Confirm Administered Dose 20 mls @ as directed .ROUTE .ST-MED ONE Stop: 05/27/20 11:08 Ketorolac Tromethamine (Ketorolac 30 Mg/Ml Sdv) 30 mg IVPUSH Q6H [place] Stop: 05/28/20 13:16 Last Admin: 05/28/20 13:54 Dose: 30 mg Documented by: Metoclopramide HCl (Metoclopramide 10 Mg/2 Ml Sdv) 10 mg IVPUSH ONETIME ONE Stop: 05/27/20 17:40 Last Admin: 05/27/20 17:50 Dose: 10 mg Documented by: Midazolam HCl (Midazolam 1 Mg/Ml 2 Ml Sdv) Confirm Administered Dose 2 mg .ROUTE .STK-MED ONE Stop: 05/27/20 12:38 Morphine Sulfate (Morphine Pf 10 Mg/10 Ml Sdv) Confirm Administered Dose 10 mg .ROUTE [place]-MED ONE Stop: 05/27/20 11:00 Nalbuphine HCl (Nalbuphine 10 Mg/1 Ml Vial) 2.5 mg IVPUSH Q3H PRN PRN Reason: Pruritis Stop: 05/28/20 12:35 Naloxone HCl (Naloxone 0.4 Mg/Ml Syringe) 0.1 mg IVPUSH ONETIME PRN PRN Reason: Respiratory Depression Stop: 05/28/20 12:35 Octyl Cyanoacrylate (Octyl 2-Cyanoacrylate 1 Tube) Confirm Administered Dose 1 applic .ROUTE .[place]-MED ONE Stop: 05/27/20 12:48 Last Admin: 05/27/20 21:58 Dose: Not Given Documented by: Ondansetron HCl (Ondansetron 4 Mg/2 Ml Sdv) Confirm Administered Dose 4 mg .ROUTE .ST-MED ONE Stop: 05/27/20 11:04 Oxytocin (Oxytocin 10 Units/1 Ml Sdv) Confirm Administered Dose 20 unit .ROUTE .STK-MED ONE Stop: 05/27/20 11:04 Phenylephrine HCl (Phenylephrine 1% 10 Mg/Ml Sdv) Confirm Administered Dose 10 mg .ROUTE .ST-MED ONE Stop: 05/27/20 11:04 Phenylephrine HCl (Phenylephrine 1% 10 Mg/Ml Sdv) Confirm Administered Dose 10 mg .ROUTE .[facility]-MED ONE Stop: 05/27/20 12:33 - Exam General: Reports: Alert, Oriented, Cooperative, No Acute Distress HEENT: Reports: Pupils Equal, Pupils Reactive, Mucous Membr. Moist/[place] Neck: Reports: Supple Lungs: Reports: Clear to Auscultation, Normal Respiratory Effort Cardiovascular: Reports: Regular Rate, Regular Rhythm GI/Abdominal Exam: Normal Bowel Sounds, Soft, Non-Tender, No Organomegaly, No Distention (Female) Exam: Normal External Exam, Enlarged Uterus ( uterus, firm U+1), Vaginal Bleeding (Small to moderate rubra lochia, no clots.) Rectal (Female) Exam: Deferred Back Exam: Reports: Normal Inspection, Full Range of Motion Extremities: Normal Inspection, Normal Range of Motion, Non-Tender, No Pedal Edema, Normal Capillary Refill Skin: Reports: Warm, Dry, Intact Wound/Incisions: Reports: Dressing Dry and Intact, Drainage (Scant old drainage noted. KASHMIR intact) Neurological: Reports: No New Focal Deficit Psy/Mental Status: Reports: Alert, Normal Affect, Normal Mood
== END 2020-05-29 12:55 | disposition home or self-care (01) | DRG 788 ==
LOC: UNDOADMIN 10:27 → MW.OB 10:27
PROVIDERS: ADMIT Obstetrics & Gynecology; ATTEND Obstetrics & Gynecology
PROC: 10D00Z1 Extraction of Products of Conception, Low, Open Approach (ICD-10-PCS; principal; 2020-05-27)
DX: O34.211 Maternal care for low transverse scar from previous cesarean delivery (principal); Z3A.39 39 weeks gestation of pregnancy; Z37.0 Single live birth; O99.824 Streptococcus B carrier state complicating childbirth
CPT/HCPCS: 36415; 59025; 85014; 85018; 85027; 86592; 86850; 86900; 86901; A9270-GY; J0690; J1100; J1885; J2250; J2270; J2370; J2405; J2590; J2765; J3010; J3490; J7120